=== PATIENT | male | born 1945 | race Caucasian/White ===

== ENCOUNTER 2019-01-23 17:25 | Emergency (ER) | payer MEDICARE ==
[~2019-01-23] VITALS: Ht 182.9 cm; Wt 80.9 kg
[~2019-01-23 17:25] MED LIST: FLUTICASONE PRO16 GM NASAL; OMNICEF300 MG PO; PROMETHAZINE W473 ML PO
[2019-01-23 18:24] VITALS: Ht 182.9 cm; Wt 80.9 kg
[2019-01-23] MEDS ORDERED: CELEBREX 100 M100 MG PO (18:26)
[2019-01-23 19:15] LABS: BASOPHILS 0.2 % (0-2); EOSINOPHILS 0.6 % (0-7); HEMATOCRIT 34.6 % (42.0-54.0); HEMOGLOBIN 12.3 g/dL (13.5-17.5); IMMATURE GRANULOCYTES 1.3 % (0-5); LYMPHOCYTES 11.7 % (15-50); MCH 33.6 pg (26.0-34.0); MCHC 35.5 g/dL (31.0-37.0); MCV 94.5 fL (80.0-100.0); MEAN PLATELET VOLUME 9.1 fL (7.4-10.4); MONOCYTES 10.6 % (2-11); NEUTROPHILS 75.6 % (40-80); PLATELET COUNT 257 10x3/uL (130-400); RBC 3.66 10x6/uL (4.20-6.10); WBC 10.3 10x3/uL (4.8-10.8)
[2019-01-23 19:32] LABS: ALBUMIN 3.3 g/dL (3.4-5.0); ANION GAP 14.7 mmol/L (8-16); BILIRUBIN - TOTAL 0.75 mg/dL (0.2-1.3); CALCIUM 9.9 mg/dL (8.5-10.1); CARBON DIOXIDE 27.9 mmol/L (21.0-32.0); CREATININE - SERUM 1.1 mg/dL (0.6-1.3); POTASSIUM - SERUM 3.6 mmol/L (3.5-5.1); PROTEIN - SERUM 8.3 g/dL (6.4-8.2)
[2019-01-24 00:46] VITALS: BP 117/76
== END 2019-01-24 00:47 | disposition home or self-care (01) ==
LOC: D.ER 17:25
PROVIDERS: Family Medicine
DX: J01.90 Acute sinusitis, unspecified (principal); R07.9 Chest pain, unspecified